=== PATIENT | female | born 1975 | race Two or more races ===

== ENCOUNTER 2019-08-05 16:17 | Emergency (ER) | payer OTHER ==
[~2019-08-05] VITALS: Ht 154.9 cm; Wt 68.0 kg
[2019-08-05] MEDS ORDERED: ASPIR 8181 MG (16:30)
== END 2019-08-05 20:22 | disposition home or self-care (01) ==
LOC: ER 16:17
DX: B34.9 Viral infection, unspecified (principal); R23.3 Spontaneous ecchymoses

== ENCOUNTER 2020-03-14 14:37 | Emergency (ER) | payer OTHER ==
[~2020-03-14] VITALS: Ht 154.9 cm; Wt 68.9 kg
[~2020-03-14 14:37] MED LIST: ASPIR 8181 MG
[2020-03-14] MEDS ORDERED: LYRICA CR165 MG PO (19:18)
== END 2020-03-14 19:25 ==
LOC: ER 14:37
DX: G62.89 Other specified polyneuropathies (principal); Z20.828 Contact with and (suspected) exposure to other viral communicable diseases

== ENCOUNTER 2023-01-07 21:58 | Emergency (ER) | payer OTHER ==
[~2023-01-07] VITALS: Ht 154.9 cm; Wt 68.9 kg
[~2023-01-07 21:58] MED LIST changes: +LYRICA CR165 MG PO
== END 2023-01-08 00:47 | disposition home or self-care (01) ==
LOC: ER 21:58
DX: R10.11 Right upper quadrant pain (principal)

== ENCOUNTER 2023-10-08 08:30 | Emergency (ER) | payer OTHER ==
[~2023-10-08] VITALS: Ht 154.9 cm; Wt 65.8 kg
[2023-10-08] MEDS ORDERED: FAMOTIDINE/PF 20 MG in 0.9 % SODIUM CHLORIDE 8 ML IV PUSH STA (09:09)
[2023-10-08] MEDS ORDERED: 0.9 % SODIUM CHLORIDE 1,000 ML IV SCH (09:15)
[2023-10-08] MEDS ORDERED: KETOROLAC TROMETHAMINE 30 MG VIAL IV ONE (09:15)
[2023-10-08] MEDS ORDERED: ONDANSETRON HCL 2 MG/ML VIAL IV ONE (09:15)
[2023-10-08 09:39] LABS: HEMATOCRIT 35.8 % (36.0-45.00); HEMOGLOBIN 11.9 g/dL (12.0-15.00); MEAN CELL VOLUME 81.2 fL (80.00-100.00); MEAN CORPUSCULAR HGB CONC 33.2 g/dl (32.0-36.0); PLATELET COUNT 295 K/uL (150-450); RED BLOOD COUNT 4.41 M/uL (4.00-6.00); RED CELL DISTRIBUTION WIDTH 14.6 % (11.5-14.5)
[2023-10-08 09:58] LABS: ALBUMIN 3.6 gm/dL (3.4-5.0); BILIRUBIN TOTAL 0.58 mg/dL (0.3-1.2); CALCIUM 9.1 mg/dL (8.5-10.1); CREATININE SERUM 0.66 mg/dL (0.55-1.02); GFR 94.8; GLOBULINA 3.8 G/DL (2.4-3.5); POTASSIUM 4.99 mEq/L (3.5-5.1); TOTAL PROTEIN 7.4 gm/dL (6.4-8.2)
[2023-10-08 10:16] LABS: BILIRUBIN,CONJUGATED 0.14 mg/dL (0.0-0.2); BILIRUBIN,UNCONJUGATED 0.44 mg/dL (0.0-0.6)
== END 2023-10-08 13:52 | disposition home or self-care (01) ==
LOC: ER 08:30
PROVIDERS: General Practice
DX: N83.202 Unspecified ovarian cyst, left side (principal); Z88.0 Allergy status to penicillin; Z88.2 Allergy status to sulfonamides

== ENCOUNTER 2024-01-12 15:14 | Emergency (ER) | payer OTHER ==
[~2024-01-12] VITALS: Ht 154.9 cm; Wt 67.1 kg
[2024-01-12] MEDS ORDERED: ONDANSETRON HCL 2 MG/ML VIAL IV ONE (16:00)
[2024-01-12] MEDS ORDERED: KETOROLAC TROMETHAMINE 30 MG VIAL IV ONE (16:00)
[2024-01-12 16:18] LABS: PH,URINE 5.5 (5.0-8.0); URINE APPEARANCE Cloudy; URINE BILIRRUBIN Negative (NEGATIVE); URINE BLOOD Moderate; URINE COLOR Yellow; URINE GLUCOSE Negative (NEGATIVE); URINE LEUKOCYTE Moderate; URINE NITRATE Negative; URINE PROTEIN Trace (NEGATIVE); URINE UROBILINOGEN 0.2 E.U./dl
[2024-01-12 16:20] LABS: HEMATOCRIT 34.3 % (36.0-45.00); HEMOGLOBIN 11.3 g/dL (12.0-15.00); MEAN CELL VOLUME 81.7 fL (80.00-100.00); MEAN CORPUSCULAR HEMOGLOBIN 26.9 pg (27.00-32.0); MEAN CORPUSCULAR HGB CONC 32.9 g/dl (32.0-36.0); PLATELET COUNT 266 K/uL (150-450); RED CELL DISTRIBUTION WIDTH 14.3 % (11.5-14.5)
[2024-01-12 16:24] LABS: URINE BACTERIA 5059.8 uL (0.0-1933); URINE EPITHELIAL CELLS 4.7 uL (0.0-38.8); URINE RBC 4.5 uL (0.0-20.8); URINE WBC 624.6 uL (0.0-23.2)
[2024-01-12 16:41] LABS: CALCIUM 9.7 mg/dL (8.5-10.1); CREATININE SERUM 0.75 mg/dL (0.55-1.02); GFR 81.79; POTASSIUM 4.27 mEq/L (3.5-5.1)
[2024-01-12] MEDS ORDERED: MACROBID 100 M100 MG PO (17:43)
[2024-01-12] MEDS ORDERED: PYRIDIUM100 M1 PO (17:43)
[2024-01-12] MEDS ORDERED: ORPHENADRINE CITRATE 30 MG/ML AMPUL IM ONE (18:00)
== END 2024-01-12 18:33 ==
LOC: ER 15:15
PROVIDERS: Nurse Practitioner Family
DX: N39.0 Urinary tract infection, site not specified (principal); R10.9 Unspecified abdominal pain; Z88.0 Allergy status to penicillin; Z88.2 Allergy status to sulfonamides; B96.29 Other Escherichia coli [E. coli] as the cause of diseases classified elsewhere; Z16.11 Resistance to penicillins

== ENCOUNTER 2024-01-15 08:35 | Emergency (ER) | payer OTHER ==
[~2024-01-15] VITALS: Ht 152.4 cm; Wt 66.2 kg
[~2024-01-15 08:35] MED LIST changes: +MACROBID 100 M100 MG PO; +PYRIDIUM100 M1 PO
[2024-01-15] MEDS ORDERED: KETOROLAC TROMETHAMINE 30 MG VIAL IV ONE (09:00)
[2024-01-15] MEDS ORDERED: 0.9 % SODIUM CHLORIDE 1,000 ML IV SCH (09:00)
[2024-01-15] MEDS ORDERED: levoFLOXacin IN DEXTROSE 5 % 5 MG/ML PIGGYBAG IV ONE (09:00)
[2024-01-15 09:45] LABS: HEMATOCRIT 35.9 % (36.0-45.00); MEAN CELL VOLUME 82.9 fL (80.00-100.00); MEAN CORPUSCULAR HEMOGLOBIN 27.6 pg (27.00-32.0); MEAN CORPUSCULAR HGB CONC 33.3 g/dl (32.0-36.0); PLATELET COUNT 273 K/uL (150-450); RED BLOOD COUNT 4.34 M/uL (4.00-6.00)
[2024-01-15] MEDS ORDERED: ONDANSETRON HCL 2 MG/ML VIAL IV ONE (09:45)
[2024-01-15 10:10] LABS: ALBUMIN 3.8 gm/dL (3.4-5.0); BILIRUBIN TOTAL 0.69 mg/dL (0.3-1.2); CREATININE SERUM 0.75 mg/dL (0.55-1.02); GFR 81.79; GLOBULINA 4.5 G/DL (2.4-3.5); POTASSIUM 4.43 mEq/L (3.5-5.1); TOTAL PROTEIN 8.3 gm/dL (6.4-8.2)
[2024-01-15 10:11] LABS: URINE APPEARANCE Clear; URINE BILIRRUBIN Negative (NEGATIVE); URINE BLOOD Small; URINE COLOR Dark Yellow; URINE GLUCOSE Negative (NEGATIVE); URINE LEUKOCYTE Negative; URINE NITRATE Positive; URINE PROTEIN Negative (NEGATIVE)
[2024-01-15 10:12] LABS: URINE BACTERIA 28.9 uL (0.0-1933); URINE EPITHELIAL CELLS 12.9 uL (0.0-38.8); URINE RBC 83.8 uL (0.0-20.8); URINE WBC 17.7 uL (0.0-23.2)
[2024-01-15 10:23] LABS: CALCIUM 9.9 mg/dL (8.5-10.1)
[2024-01-15] MEDS ORDERED: LEVOFLOXACIN750 MG PO (11:18)
[2024-01-15] MEDS ORDERED: DICLOFENAC SODI75 MG PO (11:18)
[2024-01-15] MEDS ORDERED: PEPCID AC20 MG PO (11:18)
[2024-01-15] MEDS ORDERED: LACTULOSE 20 G/30 ML BLIST.PACK PO ONE (11:30)
[2024-01-15] MEDS ORDERED: MAGNESIUM HYDROXIDE 30 ML BLIST.PACK PO ONE (11:30)
== END 2024-01-15 11:53 | disposition home or self-care (01) ==
LOC: ER 08:35
PROVIDERS: General Practice
DX: N39.0 Urinary tract infection, site not specified (principal); Z88.0 Allergy status to penicillin; Z88.2 Allergy status to sulfonamides

== ENCOUNTER → 2025-04-11 | Emergency (ER) | payer OTHER ==
[~2025-04-11] VITALS: Ht 154.9 cm; Wt 73.0 kg
[~2025-04-11] MED LIST changes: +DICLOFENAC SODI75 MG PO; +KETOROLAC TROMETHAMINE 30 MG VIAL IM ONE; +KETOROLAC TROMETHAMINE 30 MG VIAL IV ONE; +KETOROLAC TROMETHAMINE 30 MG VIAL ONE; +LEVOFLOXACIN750 MG PO; +PEPCID AC20 MG PO
== END | disposition left against medical advice (07) ==
LOC: ER 18:55
DX: R20.0 Anesthesia of skin (principal); R42 Dizziness and giddiness; R53.1 Weakness; Z88.0 Allergy status to penicillin; Z88.2 Allergy status to sulfonamides